=== PATIENT | male | born 1935 | race Caucasian/White ===

== ENCOUNTER 2021-03-31 14:32 | Inpatient (IN) | payer OTHER ==
[~2021-03-31] VITALS: Ht 175.3 cm; Wt 73.4 kg
[2021-03-31 15:35] LABS: BASOPHILS ABSOLUTE AUTO 0.01 K/mm3 (0.00-0.23); BASOPHILS PERCENT AUTO 0 % (0-2); EOSINOPHILS PERCENT AUTO 0 % (0-6); Hematocrit 37.2 % (37.0-53.0); Hemoglobin 11.4 g/dL (13.5-17.5); IMMATURE GRAN ABSOLUTE AUTO 0.03 K/mm3 (0.00-0.10); IMMATURE GRAN PERCENT AUTO 0 % (0-1); LYMPHOCYTES PERCENT AUTO 13 % (21-46); MONOCYTES ABSOLUTE AUTO 0.23 K/mm3 (0.16-1.47); MONOCYTES PERCENT AUTO 3 % (4-13); Mean Corpuscular HGB 24.7 pg (26.0-34.0); Mean Corpuscular HGB Conc 30.6 g/dL (31.5-36.5); Mean Corpuscular Volume 81 fL (80-100); Mean Platelet Volume 9.2 fL (9.1-12.4); NEUTROPHILS ABSOLUTE AUTO 6.36 K/mm3 (1.96-9.15); NEUTROPHILS PERCENT AUTO 83 % (41-73); Platelet Count 414 K/mm3 (150-400); RDW Coefficient Variation 14.8 % (11.7-14.2); RDW Standard Deviation 43.5 fL (35.1-46.3); Red Blood Cell Count 4.61 M/mm3 (4.30-5.90); White Blood Cell Count 7.63 K/mm3 (4.00-11.30)
[2021-03-31 16:11] LABS: Alanine Aminotransfer (ALT/SGP 37 U/L (12-78); Albumin, Blood 3.2 g/dL (3.4-5.0); Albumin/Globulin Ratio 1.1 (0.8-1.8); Alk Phos 100 U/L (50-136); Anion Gap 8 mmol/L (6-16); Aspartate Aminotrans (AST/SGOT 27 U/L (12-37); Bilirubin, Total 0.4 mg/dL (0.1-1.0); Blood Urea Nitrogen 20 mg/dL (8-24); Bun/Creatinine Ratio 20.4 (12.0-20.0); CO2, Blood 27 mmol/L (21-32); Chloride, Blood 107 mmol/L (98-108); Creatinine, Blood 0.98 mg/dL (0.60-1.20); Glomerular Filtration Rate >60 (60-); Glucose, Blood 169 mg/dL (70-99); Potassium, Blood 4.4 mmol/L (3.5-5.5); Sodium, Blood 142 mmol/L (136-145); Total Protein, Blood 6.2 g/dL (6.4-8.2)
[2021-03-31 16:12] LABS: Troponin I 0.137 ng/mL (0.000-0.040)
[2021-03-31 17:19] LABS: Influenza A, PCR NEGATIVE (NEGATIVE); Influenza B, PCR NEGATIVE (NEGATIVE); Resp Syncytial Virus, PCR NEGATIVE (NEGATIVE); SARS-Cov-2 (COVID-19) PCR, MMC NEGATIVE (NEGATIVE)
[2021-03-31] MEDS ORDERED: ACET500 PO (20:24)
[2021-03-31] MEDS ORDERED: ALBU90OI INH (20:25)
[2021-03-31] MEDS ORDERED: ELIQUIS2.5 MG PO (20:25)
[2021-03-31] MEDS ORDERED: BENZ100A PO (20:26)
[2021-03-31] MEDS ORDERED: OYSTER SHELL 51 EAC2 PO (20:26)
[2021-03-31] MEDS ORDERED: CARBOXYMETHYLCE15 ML BOTHEYES (20:28)
[2021-03-31] MEDS ORDERED: Celexa20 MG PO (20:29)
[2021-03-31] MEDS ORDERED: DULO60 PO (20:29)
[2021-03-31] MEDS ORDERED: GUAI600T33 PO (20:30)
[2021-03-31] MEDS ORDERED: Flonase 0.05% N16 GM (20:30)
[2021-03-31] MEDS ORDERED: LORA10ER PO (20:31)
[2021-03-31] MEDS ORDERED: STRIVERDI RESPIM4 G1 INH (20:32)
[2021-03-31] MEDS ORDERED: MIRALAX17 GM PO (20:33)
[2021-03-31] MEDS ORDERED: METSALMENC EXT (20:34)
[2021-03-31] MEDS ORDERED: DOXYCYCLINE HYC50 M1 PO (20:44)
[2021-03-31] MEDS ORDERED: PRED20 PO (20:45)
--- NOTE | 2021-04-01 01:49 | NUR ---
ADMISSION: THE PT WAS BROUGHT IN VIA EMS D/T WORSENING SOB FOR 6 WEEKS. HE WAS COVID - IN THE ED AND HAS BEEN VACCINATED. HE DID HAVE C/O OF A PRODUCTIVE COUGH, BUT WAS NOT AFEBRILE AND DID NOT HAVE ANY CHEST PAIN. HE DOES USE 3L OF O2 BASELINE. HE DID HAVE AN ELEVEATED TROP, BUT IT'S BEEN TRENDING DOWN. HE ALSO WAS IN AFIB IN THE 120s, BUT HAS CONVERTED BACK TO SR. HE IS A PLEASANT MAN, INDEPENDENT IN THE ROOM, AND A GOOD HISTORIAN. HE WAS EDUCATED ON THE CALL LIGHT AND WE'LL CONTINUE TO MONITOR THROUGHOUT THE REMAINDER OF THE NOC SHIFT.
--- NOTE | 2021-04-01 04:58 | NUR ---
A/OX4, ED ADMIT. ON 3L O2 (BASELINE AT HOME). VERY PLEASANT MAN; GOOD HISTORIAN. TELE: SR. COVID - DOWN IN ED-VACCINATED THOUGH. WILL USE CALL LIGHT FOR NEEDS. POSSIBLE ECHO TODAY. WE'LL CONTINUE TO MONITOR.
[2021-04-01 08:17] LABS: Hematocrit 35.7 % (37.0-53.0); Hemoglobin 11.1 g/dL (13.5-17.5); Mean Corpuscular HGB 24.8 pg (26.0-34.0); Mean Corpuscular HGB Conc 31.1 g/dL (31.5-36.5); Mean Corpuscular Volume 80 fL (80-100); Mean Platelet Volume 9.5 fL (9.1-12.4); Platelet Count 438 K/mm3 (150-400); RDW Coefficient Variation 14.7 % (11.7-14.2); RDW Standard Deviation 42.7 fL (35.1-46.3); Red Blood Cell Count 4.47 M/mm3 (4.30-5.90); White Blood Cell Count 6.75 K/mm3 (4.00-11.30)
[2021-04-01 08:51] LABS: Anion Gap 9 mmol/L (6-16); Blood Urea Nitrogen 25 mg/dL (8-24); Bun/Creatinine Ratio 23.8 (12.0-20.0); CO2, Blood 29 mmol/L (21-32); Calcium, Blood 9.2 mg/dL (8.5-10.1); Chloride, Blood 103 mmol/L (98-108); Creatinine, Blood 1.05 mg/dL (0.60-1.20); Glomerular Filtration Rate >60 (60-); Glucose, Blood 126 mg/dL (70-99); Potassium, Blood 4.2 mmol/L (3.5-5.5); Sodium, Blood 141 mmol/L (136-145); Troponin I 0.092 ng/mL (0.000-0.040)
--- NOTE | 2021-04-01 09:21 | NUR ---
Echocardiogram completed.
--- NOTE | 2021-04-01 17:28 | NUR ---
SHIFT SUMMARY PATIENT DENIES PAIN, NAUSEA, AND SHORTNESS OF BREATH. PATIENT IS ON 3L VIA N/C. THIS IS PATIENT'S BASELINE. PATIENT IS SATURATING ABOVE 96%. PATIENT IS SBA TO THE BATHROOM. PT WORKED WITH PATIENT TODAY. OT WORKED WITH PATIENT TODAY. PATIENT IS EATING AND DRINKING WELL. PATIENT DOES HAVE A PRODUCTIVE COUGH, BUT REPORTS COUGH IS GETTING BETTER. PATIENT IS PLEASANT AND COOPERATIVE WITH CARE.
[2021-04-02 05:53] LABS: Bun/Creatinine Ratio 32.5 (12.0-20.0); Calcium, Blood 10.1 mg/dL (8.5-10.1); Creatinine, Blood 1.17 mg/dL (0.60-1.20); Potassium, Blood 4.2 mmol/L (3.5-5.5)
--- NOTE | 2021-04-02 06:13 | NUR ---
SHIFT SUMMARY: PT IS A/OX4. ON 3L OF O2 WHICH IS BASELINE. TELE: W/ BBB/68. HE IS NIGHTMUTE, BEST TO TALK DIRECTLY TO HIM. HE IS USING THE PICKLE WELL AND COARSE COUGH AND SPUTUM IS REDUCED. HE HAS BEEN INDEPEDENT IN THE ROOM AND CALLS FOR NEEDS.
[2021-04-02] MEDS ORDERED: IPRAT-ALBUT 0.5-3 ML INH (12:19)
[2021-04-02] MEDS ORDERED: FURO20 PO (12:19)
[2021-04-02] MEDS ORDERED: Prednisone10 MG PO (12:25)
--- NOTE | 2021-04-02 15:55 | NUR ---
DISCHARGE NOTE PT A&OX4. PLEASANT AND COOPERATIVE. MAKES NEEDS KNOWN APPROPRIATELY. ON 3L NC O2, SPO2 MID 90S. VSS. OCCASIONAL DRY COUGH NOTED, MEDICATED WITH SCHEDULED THEDAALISE ODEN WITH + RESULT. PT MEDICATED PER MAY. DISCHARGE ORDERS IN PER MD. PT ARRANGES WITH FAMILY FOR RIDE HOME. DISCHARGE INSTRUCTION, TEACHING, AND PAPERWORK GIVEN TO PATIENT. QUESTIONS AND CONCERNS ADDRESSED. FAMILY MEMBER BRINGS IN PATIENT'S PORTABLE O2 TANK FOR THE RIDE. TELEMETRY BOX AND PIV REMOVED. NO S/S OF BLEED. PATIENT STABLE. TRANSPORTED OFF UNIT VIA W/C WITH NURSING STAFF, WITH FAMILY MEMBER AT SIDE.
== END 2021-04-02 16:07 | disposition home or self-care (01) | DRG 291 ==
LOC: ER 14:32 → MEDS 17:34
PROVIDERS: Emergency Medicine; Internal Medicine; Physician Assistant; ADMIT Internal Medicine
DX: I11.0 Hypertensive heart disease with heart failure (principal); J96.21 Acute and chronic respiratory failure with hypoxia; I50.33 Acute on chronic diastolic (congestive) heart failure; J44.1 Chronic obstructive pulmonary disease with (acute) exacerbation; Z20.822 Contact with and (suspected) exposure to COVID-19; R77.8 Other specified abnormalities of plasma proteins; R79.1 Abnormal coagulation profile; Z23 Encounter for immunization; F32.A Depression, unspecified; G47.00 Insomnia, unspecified; I48.0 Paroxysmal atrial fibrillation; K21.9 Gastro-esophageal reflux disease without esophagitis; E78.00 Pure hypercholesterolemia, unspecified; M19.90 Unspecified osteoarthritis, unspecified site; Z99.81 Dependence on supplemental oxygen; Z79.01 Long term (current) use of anticoagulants; Z79.52 Long term (current) use of systemic steroids; Z85.46 Personal history of malignant neoplasm of prostate; Z79.899 Other long term (current) drug therapy; Z90.89 Acquired absence of other organs; Z98.890 Other specified postprocedural states
CPT/HCPCS: 0241U; 36415; 71046; 80048; 80053; 83735; 83880; 84145; 84484; 85025; 85027; 85379; 90686; 93005; 93010; 93306; 94640; 94760; 96365; 97116; 97161; 97165; 97530; 97535; 99285-25; A9270; J1940; J2930; J3475; J7512